=== PATIENT | female | born 2000 | race Caucasian/White ===

== ENCOUNTER 2021-05-10 20:02 | Emergency (ER) | payer MEDICAID ==
[~2021-05-10] VITALS: Ht 165.1 cm; Wt 54.5 kg
[~2021-05-10 20:02] MED LIST: NORG1TAB90 PO
[2021-05-10 20:38] VITALS: BP 112/52
[2021-05-10] MEDS ORDERED: CLIN150C8 PO (21:14)
== END 2021-05-10 21:31 | disposition home or self-care (01) ==
LOC: ER 20:02
DX: K04.7 Periapical abscess without sinus (principal)
CPT/HCPCS: 99283

== ENCOUNTER 2022-11-16 22:27 | Emergency (ER) | payer MEDICAID ==
[~2022-11-16] VITALS: Ht 165.1 cm; Wt 50.8 kg
[~2022-11-16 22:27] MED LIST changes: +CLIN-214 PO
[2022-11-16 22:47] LABS: BASOPHILS % (AUTO) 0.4 % (0-1); EOSINOPHILS # (AUTO) 0.1 X10'3 (0-0.9); HEMATOCRIT 38.4 % (35.0-45.0); HEMOGLOBIN 13.1 g/dl (12.0-16.0); LYMPHOCYTES # (AUTO) 2.2 X10'3 (1.1-4.8); LYMPHOCYTES % (AUTO) 18.2 % (21-51); MEAN CORPUSCULAR HEMOGLOBIN 32.2 PG (27.0-31.0); MEAN CORPUSCULAR HGB CONC 34.2 g/dL (33.0-36.5); MEAN CORPUSCULAR VOLUME 94.2 FL (78-98); MONOCYTES # (AUTO) 0.8 X10'3 (0-0.9); MONOCYTES % (AUTO) 6.6 % (2-12); NEUTROPHILS # (AUTO) 8.8 X10'3 (1.8-7.7); NEUTROPHILS % (AUTO) 73.8 % (42-75); PLATELET COUNT 315 X10'3 (140-440); RED BLOOD COUNT 4.08 X10'6 (4.20-5.60); RED CELL DISTRIBUTION WIDTH 12.2 % (11.5-14.5); WHITE BLOOD COUNT 11.9 X10'3 (4.5-11.0)
[2022-11-16 22:48] LABS: CLARITY,URINE CLOUDY (Clear); COLOR,URINE YELLOW (Yellow); GLUCOSE, URINE NEGATIVE (Neg); KETONES,URINE NEGATIVE (Neg); LEUKOCYTE ESTERASE ,URINE SMALL (Neg); NITRITES, URINE NEGATIVE (Neg); OCCULT BLOOD,URINE MODERATE (Neg); PH,URINE 6.5 (4.8-8.0); PROTEIN,URINE 100 mg/dl (Neg); UROBILINOGEN,URINE 0.2 E.U/dL (0.2-1.0)
[2022-11-16 22:49] LABS: URINE HCG NEGATIVE (NEG)
[2022-11-16 22:53] LABS: UA COLLECTION TYPE CLN CATCH MIDSTREAM
[2022-11-16 22:54] LABS: SQUAMOUS EPITHELIAL CELL,UR MODERATE /LPF (FEW); WBC CLUMPS,URINE MODERATE /HPF (NEGATIVE)
[2022-11-16 22:55] LABS: WBC,URINE 50-100 /HPF (0-4)
[2022-11-16 22:56] LABS: BACTERIA,URINE FEW /HPF (Neg); RBC,URINE TNTC /HPF (0-2)
[2022-11-16 22:57] LABS: TRANSITIONAL EPI CELLS,URINE MANY /HPF
[2022-11-16 23:02] LABS: ALANINE AMINOTRANSFERASE 21 U/L (12-78); ALBUMIN 3.5 G/DL (3.4-5.0); ALKALINE PHOSPHATASE 94 IU/L (46-116); ANION GAP 7 (8-16); ASPARTATE AMINO TRANSFERASE 12 U/L (10-37); BILIRUBIN,TOTAL 0.2 MG/DL (0.1-1.0); BLOOD UREA NITROGEN 7 MG/DL (7-18); BUN/CREATININE RATIO 9.2 (10.0-20.0); CALCIUM 8.8 MG/DL (8.5-10.1); CHLORIDE 106 MMOL/L (99-107); CREATININE 0.76 MG/DL (0.40-0.90); GLUCOSE 115 MG/DL (70-104); LIPASE 50 U/L (73-393); POTASSIUM 3.7 MMOL/L (3.5-5.1); SODIUM 141 MMOL/L (135-145); TOTAL CARBON DIOXIDE 27.8 MMOL/L (24-32); TOTAL PROTEIN 6.9 G/DL (6.4-8.2); eGFR > 90 ML/MIN
[2022-11-17] MEDS ORDERED: ibuprofen tablet 400 MG TABLET PO ONE (06:18)
[2022-11-17] MEDS ORDERED: acetaminophen 325mg tablet PO ONE (06:18)
[2022-11-17 07:38] VITALS: BP 132/81
[2022-11-17] MEDS ORDERED: CEPH-585 PO (07:53)
[2022-11-17] MEDS ORDERED: ketorolac tromethamine 15mg/ml inj. IM ONE (07:55)
[2022-11-17] MEDS ORDERED: cephalexin 500mg capsule PO ONE (07:55)
[2022-11-17] MEDS ORDERED: cephalexin 250mg capsule PO ONE (07:55)
== END 2022-11-17 07:40 | disposition home or self-care (01) ==
LOC: ER 22:28
DX: R10.9 Unspecified abdominal pain (principal); Z88.0 Allergy status to penicillin; Z98.890 Other specified postprocedural states
CPT/HCPCS: 36415; 74176; 80053; 81001; 81025; 83690; 85025; 87088; 87186; 96372; 99285; J1885; 87077